=== PATIENT | male | born 1995 | race Caucasian/White ===

== ENCOUNTER 2021-08-15 11:09 | Emergency (ER) | payer OTHER ==
[~2021-08-15] VITALS: Ht 175.3 cm; Wt 59.0 kg
[2021-08-15] MEDS ORDERED: ZOFRAN ODT4 MG DISSOLVE (11:33)
[2021-08-15] MEDS ORDERED: XANAX 0.5 MG0.5 MG PO (11:33)
[2021-08-15 11:39] VITALS: BP 123/81
== END 2021-08-15 11:40 | disposition home or self-care (01) ==
LOC: M.ERS 11:09
DX: F41.0 Panic disorder [episodic paroxysmal anxiety] (principal)